=== PATIENT | male | born 1975 | race Caucasian/White ===

== ENCOUNTER 2024-01-29 06:19 | Day surgery (SDC) | payer OTHER, SELFPAY ==
[2024-01-29] VITALS (9 sets, daily range): BP systolic 105–121; BP diastolic 74–86; BMI 24.1
[2024-01-29] MEDS: TYLENOL 1000 MG PO (08:08)
[2024-01-29] MEDS: CELEBREX 200 MG PO (08:08)
[2024-01-29] MEDS: NORMOSOL-R 1000 IV (08:15)
[2024-01-29] MEDS: SUBLIMAZE 25 MCG IV ×2 (11:13→11:28)
== END 2024-01-29 12:50 | disposition home or self-care (01) ==
LOC: SDS 06:19
PROVIDERS: ATTENDING PHYSICIAN Orthopaedic Surgery Hand Surgery; FAMILY PHYSICIAN Family Medicine
DX: S43.432A Superior glenoid labrum lesion of left shoulder, initial encounter (principal); X58.XXXA Exposure to other specified factors, initial encounter; M75.42 Impingement syndrome of left shoulder
CPT/HCPCS: 23430; 29826; 29806; C1776

== ENCOUNTER 2025-05-12 08:37 | Emergency (ER) | payer OTHER, SELFPAY ==
[2025-05-12 08:41] VITALS: BP 142/89
[2025-05-12 09:45] LABS: Hematocrit 45.1 % (39.0-52.0); Hemoglobin 15.3 g/dL (13.0-18.0); Mean Corp Hgb Conc. 33.9 g/dL (33.0-37.0); Mean Corpuscular Volume 85.9 fL (80.0-94.0); Nucleated Red Blood Cells % 0 % (-); Platelet Count 214 10^3/uL (130-400); Red Cell Dist. Width 12.4 % (11.5-14.5)
[2025-05-12 10:15] LABS: ALT (SGPT) 37 U/L (0-50); AST (SGOT) 25 U/L (17-59); Albumin 4.5 g/dl (3.5-5.0); Alkaline Phosphatase 61 U/L (38-126); Blood Urea Nitrogen 23 mg/dl (9-20); Calcium 9.2 mg/dl (8.4-10.2); Carbon Dioxide 30 mmol/L (22-30); Chloride 102 mmol/L (98-107); Glucose 104 mg/dl (70-99); Potassium 4.7 mmol/L (3.5-5.1); Sodium 139 mmol/L (135-145); Total Protein 7.4 g/dl (6.3-8.2); eGFR 56.72
--- NOTE | 2025-05-12 10:28 | ED.GENMED ---
History of Present Illness
General
Chief Complaint: Abdominal Pain
Source: patient
Exam Limitations: none
Time Seen by Provider: 05/12/25 10:15
Nursing documentation reviewed up to this point in time: agreed with
History of Present Illness
History of Present Illness:
Patient is a 50-year-old male who presents to the ER complaining of left-sided lower abdominal pain off and on for the past 2 days. He denies any associated nausea vomiting fever chills. Denies any urinary frequency urgency or dysuria. normal
bowel movement this am.
Phy Exam
General Physical Exam
General Presentation: no apparent distress
General age: appears stated age
General Skin: warm and dry
General Habitus: normal
General Mental: alert
General Hydration: appears well hydrated
Gastrointestinal Exam
Gastrointestinal Exam: soft and other (+ left sided abd tenderness on exam )
Neurological Exam
Neurological Exam: alert and oriented x3
Musculoskeletal Exam
Musculoskeletal Exam: full ROM
Skin Exam
Skin Exam: normal color and warm/dry
Psychiatric Exam
Psychiatric Exam: normal mood/affect
Course
Orders/Labs/Results
Orders:
Orders
05/12/25 09:19
Abdomen Xray - 1 View [CR Abdomen - 1 View] Urgent
Comment:
Reason For Exam: LLQ pain
05/12/25 09:27
Complete Blood Count/With Diff Urgent
Comprehensive Metabolic Panel Urgent
05/12/25 11:14
0.9% Sodium Chloride 1000 ml [Nss] 1,000 ml IV BOLUS
05/12/25 11:23
CT Abd/pelvis W Iv Cont Urgent
Comment:
Reason For Exam: left sided abd pain
05/12/25 12:30
Ketorolac [Toradol] 15 mg IV NOW STA
Abnormal Lab Results
05/12/25
09:27
BUN 23 H mg/dl
(9-20)
Creatinine 1.5 H mg/dL
(0.7-1.3)
Glucose 104 H mg/dl
(70-99)
05/12/25 09:27
05/12/25 09:27
Vital Signs
Initial and Last Documented VS:
Initial Vital Signs
Temp Pulse Resp BP Pulse Ox
97.5 F 72 16 142/89 98
05/12/25 08:41 05/12/25 08:41 05/12/25 08:41 05/12/25 08:41 05/12/25 08:41
Last Documented Vital Signs
Temp Pulse Resp BP Pulse Ox
97.5 F 66 17 115/80 99
05/12/25 08:41 05/12/25 12:30 05/12/25 12:30 05/12/25 12:00 05/12/25 12:30
Rn Nicu consulted with Physician
Rn Nicu consulted with physician?: Yes
Name of Physician Consulted: Kym
MDM/Problems Addressed
Differential Diagnosis Includes:
Not limited to colitis bowel obstruction constipation diverticulitis renal colic
MDM/Problems Addressed:
Patient is a 50 or male who presents left side abdominal pain. CAT scan actually does show a 2 mm left distal ureteral calculus renal function very minimally elevated he was given fluids here in the ER. In addition there is a very mild focal ileus
seen. will d/c w/ urology follow up .
Case reviewed with ED physician patient does have very minimal renal insufficiency he was hydrated here discussed with him importance of increasing fluids however still okay to take ibuprofen if needed for pain patient does request something little
stronger. With ileus I did recommend that he take MiraLAX while taking the pain medication.
He has an appoint with his family doctor next week and has an appointment to get labs done in the next several days discussed with patient that his renal function will need to be checked. Will give him information for urology.
*Radiology
Radiology exam reviewed: radiology read reviewed
*Pulse Oximetry
SaO2: 98
Oxygen Mode of Delivery: Room air
Patient hypoxic: no
*Critical Care Note
Total Time (30-74mins, 75-104mins- exclusive of procedures): Not Applicable
ED Attending Note
-
Portions of this chart may have been created with voice recognition software.� Occasional wrong word or��sound alike� substitutions may have occurred due to the inherent limitations of voice recognition software.
Discharge Plan
Departure
Patient Disposition: Home (Routine Discharge)
Date of Disposition: 05/12/25
Time of Disposition: 13:23
Patient with high blood pressure during this ER visit?: Yes
Condition: Fair
Covid-19: Not Applicable
Discharge Problem:
Renal colic on left side, Ileus
Instructions: Kidney Stones (DC), BLOOD PRESSURE
Prescriptions:
New
tamsulosin [Flomax] 0.4 mg capsule
0.4 mg PO DAILY Qty: 7 0RF
oxycodone 5 mg tablet
5 mg PO Q6H PRN (Reason: Pain) Qty: 6 0RF
No Action
ibuprofen [Advil] 200 mg Tablet
200 mg PO Q6H PRN (Reason: pain)
Excedrin Extra Strength 250-250-65 mg Tablet
1 tab PO ONCE
B-complex with vitamin C [Vit B Comp W/C] Capsule
1 cap PO DAILY
acetaminophen [Tylenol] 325 mg Capsule
650 mg PO Q6H PRN (Reason: pain)
vitamin D3-vitamin K2 (MK4) 1,000-100 unit-mcg Tablet
1 tab PO DAILY
Referrals:
Nicholas James MD [Active, Urology]
Jaquan Rios MD [Family Provider, Family Practice]
Activity Restrictions/Additional Instructions:
As discussed increase fluids.
Take daily Flomax to help pass the kidney stone. Take daily for 7 days.
For pain you may take ibuprofen every 8 hours as needed however if needed a stronger pain medicine, oxycodone was sent to your pharmacy take as directed. In addition please take MiraLAX while taking this medication. You do have a very small ileus
on your CAT scan and this medication can cause constipation.
Follow-up with your family doctor in the next several days to have your renal function rechecked as it was mildly elevated. In addition please follow-up with urology please call today to make an appointment as soon as possible. Return if any
worsening of symptoms of increased pain nausea vomiting fever chills.
Interventions
Interventions:
*Risk Screen - Suicide Last Done: 05/12/25 08:41
*General Assessment Last Done: 05/12/25 10:37
*Neglect/Abuse Screening Last Done: 05/12/25 08:41
*ED COVID-19 Vaccine History Last Done: 05/12/25 10:37
*ED Influenza Vaccine History Last Done: 05/12/25 10:37
GI-Epajgn-Lfbmoylpga Assessment Last Done: 05/12/25 10:37
Discharge Date and Time
Print Language: SLOVAK
[2025-05-12 10:35] VITALS: BP 114/84
[2025-05-12 11:00] VITALS: BP 110/76
[2025-05-12] MEDS: NSS 1000 IV (11:27)
[2025-05-12 12:00] VITALS: BP 115/80
[2025-05-12] MEDS: TORADOL 15 MG IV (12:34)
[2025-05-12 13:00] VITALS: BP 121/86
== END 2025-05-12 13:38 | disposition home or self-care (01) ==
LOC: EMR 08:37
PROVIDERS: Emergency Medicine; EMERGENCY PHYSICIAN Emergency Medicine; FAMILY PHYSICIAN Family Medicine
DX: K56.7 Ileus, unspecified (principal); N20.2 Calculus of kidney with calculus of ureter
CPT/HCPCS: 96374; 96361; 99284; 74018; 74177; 80053; 85025; Q9967

== ENCOUNTER → 2025-06-16 11:12 | Outpatient (REF) | payer OTHER, SELFPAY | LOC: HWRAD 11:12 | PROVIDERS: ATTENDING PHYSICIAN Specialist; FAMILY PHYSICIAN Family Medicine | DX: N20.1 Calculus of ureter (principal); N28.1 Cyst of kidney, acquired | CPT/HCPCS: 76770 ==